=== PATIENT | female | born 1985 | race Caucasian/White ===

== ENCOUNTER 2017-08-31 21:26 | Inpatient (IN) ==
[~2017-08-31 21:26] MED LIST: ESTROGENS CONJUGATED 25 MG IVP ONE
--- OUTSIDE RECORDS SUMMARY | 2017-08-31 21:34 | External Medical Summary | Continuity of Care Document ---
:1985 Author Organization Keiry Craven [facility] Care Team Providers Name Role Phone JOE CORRAL D.O. Unavailable Unavailable Insurance Providers Payer Name Policy Number Subscriber Name Relationship [employer] [place] [id number] Haylie Sexton 01 Self / Same As Patient Advance Directives Directive Response Recorded Date/Time Patient Resuscitation Status Full Code 04/23/15 9:06am Advance Directives No 04/23/15 9:06am Living Will No 04/23/15 9:06am Power of Maintenance Machine Repairer/Legal Guardian No 04/22/15 12:54pm Problems No problem information available. Medications Current Home Medications Medication Dose Units Route Directions Days/Qty Instructions Start Date Phentermine Hcl 37.5 Mg Oral Daily for Not 04/22/15 37.5 Mg Specified Social History Social History Problem Response Recorded Date/Time Smoking Status Never smoker 04/23/2015 9:06am Query Response Start Date Stop Date Smoking Status Never smoker Hospital Discharge Instructions No hospital discharge instructions. Plan of Care Discharge Date 04/23/15 12:50pm Prescriptions See Medication Section Functional Status Query Response Date Recorded Overall Activities Daily Living Independ/No setup help April 23, 2015 9: 06am Ability/Staff Support Allergies, Adverse Reactions, Alerts No known allergies. Immunizations No immunization records. Vital Signs Acute Vital Signs Vital Response Date/Time Blood Pressure 138/85 mm Hg 04/23/2015 9:06am Blood Pressure Mean 89 mm Hg 04/23/2015 12:05pm Blood Pressure Mean 102 mm Hg 04/23/2015 9:06am Temperature (Fahrenheit) 98.1 degrees F (96.0 - 99.9) 04/23/2015 9:06am Temperature (Calculated Celsius) 36.90534 degrees C 04/23/2015 9:06am Temperature Source Oral 04/23/2015 9:06am Temp 97.1 degrees F (96.0 - 99.9) 04/23/2015 12:11pm Temperature (Calculated Celsius) 36.66507 degrees C 04/23/2015 12:11pm Pulse Pulse Rate (adult) 80 bpm (60 - 100) 04/23/2015 9:06am Pulse Rate (adult) 63 bpm (60 - 100) 04/23/2015 12:10pm Respiratory Rate 18 breaths per minute (10 - 20) 04/23/2015 9:06am Respiratory Rate 15 bpm (10 - 20) 04/23/2015 12:10pm Height (Feet) 5 ft 04/23/2015 9:06am Height (Inches) 8.0 in. 04/23/2015 9:06am Weight (Pounds) 206.0 lbs 04/23/2015 9:06am Height 5 ft 8 in Weight 206 lb Body Mass Index 31.3 kg/m^2 Results Laboratory Results Test Name Result Units Flags Reference Collection Result Comments Date/Time Date/Time Bedside Glucose 86 mg/dL 70-120 04/23/2015 04/23/2015 00 9:37am 9:43am Urine Human NEGATIVE NEGATIVE 04/23/2015 UNK 04/23/2015 Chorionic 10:07am Gonadotropin Procedures Procedure Status Date Provider(s) Knee arthroscopy, left Completed 04/23/15 MARI HAMILTON M.D. Encounters Encounter Location Arrival/Admit Date Discharge/Depart Date Attending Provider Departed Keiry Craven 04/23/15 9:06am 04/23/15 12:50pm MARI HAMILTON M.D. Surgical Day [facility]. Hospital Care
--- OUTSIDE RECORDS SUMMARY | 2017-08-31 21:34 | External Medical Summary | Referral Summary ---
:1985 Author Organization [facility] Address [address] [place] [id number] Care Team Providers Name Role Phone Crystal Barbosa Primary Care Physician Encounter VC Date(s): 01/28/15 - 01/28/15 [facility] [address] [place] [phone] [place] Discharge Diagnosis: Dietary counseling Discharge Disposition: 01-Home or Self Care Attending Physician: Crystal Barbosa MD Admitting Physician: Crystal Barbosa MD Vital Signs Most recent to oldest [Reference Range]: 1 Peripheral Pulse Rate [60-100 bpm] 80 bpm (01/28/15 1:05 PM) Respiratory Rate [14-20 br/min] 20 br/min (01/28/15 1:05 PM) Blood Pressure [90-140/60-90 mmHg] 120/76 mmHg (01/28/15 1:05 PM) Problem List Condition Effective Dates Status Health Status Informant Morbid obesity(Confirmed) Active patient Allergies, Adverse Reactions, Alerts No Known Allergies Medications [place] 5 mg-325 mg oral tablet 1 tabs, Oral, q6hr, 0 Refill(s) Start Date: 01/28/15 Status: Orderedphentermine 37.5 mg oral tablet 37.5 mg 1 tabs, Oral, Daily, # 30 tabs, 0 Refill(s) Start Date: 03/12/15 Status: Orderedphentermine 37.5 mg oral tablet 37.5 mg 1 tabs, Oral, Daily, # 30 tabs, 0 Refill(s) Start Date: 01/28/15 Status: Orderedspironolactone 25 mg oral tablet 25 mg 1 tabs, Oral, Daily, 0 Refill(s) Start Date: 01/28/15 Status: Ordered Results No data available for this section Immunizations No data available for this section Procedures Procedure Date Related Diagnosis Body Site Tubal ligation evaluation [place] teeth extracted Social History Social History Type Response Smoking Status Never smoker Assessment and Plan Extracted from: Title: *Dietary counseling Author: Crystal Barbosa MD Date: 01/28/15 Assessment/Plan Dietary counseling Phentermine #1was prescribed. Instructions for use and possible side-effects were discussed. Patient is to monitor blood pressure and recheck weight and blood pressure here in 1 month. Patient instructed to call if problems develop. Discussed dietary and exercise strategies for weight loss with emphasis on a long-term, balanced approach to eating and living.
--- OUTSIDE RECORDS SUMMARY | 2017-08-31 21:34 | External Medical Summary | Continuity of Care Document ---
:1985 Author Organization [facility] Address [address] [place], [place] [phone] Phone Care Team Providers Name Role Phone Albert Ko DO Unavailable Unavailable Allergies, Adverse Reactions, Alerts Substance Reaction Severity Status No Known Drug Allergies Unknown Active Medications Medication Instructions Dosage Effective Dates Status Comments (start - stop) Aygestin 5 mg tablet take 1 Tablet by - Active Oral route two times daily for 14 days Mirena 20 mcg/24 hr - - Active (5 years) intrauterine device doxycycline take 1 capsule by 100 MG - No Longer monohydrate 100 mg oral route 2 times Active capsule every day for 7 days Problems Condition Effective Dates (start - stop) Clinical Status Encntr for f/u exam aft trtmt for cond - oth yris ballard neoplvero Encounter for insertion of - intrauterine contraceptive device Encounter for test, result - negative Menorrhagia Dysfunctional Uterine Bleeding Pap Smear Screening, Cervix - Dysfunctional Uterine Bleeding - Procedures Procedure Date Postop followup visit Results Test Name Date and Time Measure Units Reference Range Abnormal Flag Comments Unknown Advance Directives Directive Yes / No Effective Date File Name Unknown Encounters Encounter Practice Location Reason(s) Diagnoses Date Provider Care Description For Visit Team Members Vida Reyes [facility] [address] [place]. [facility] [place], [id number] [address] Veronica, [place], 120, [id number], [place], [place], tel:[phone] , [place]. tel: [phone] Vida Reyes post-operati Encntr for f/u Dec-2 [facility] ve exam aft trtmt - [place]. [address] [place] [address], examination for cond oth than 7 Medical PO Box (chief malig neoplm Center 1522, complaint) [place], 120, [place], [place], [id number], [place], [place] [id number] tel: , [place]. tel:[phone] Vida Reyes Encounter for Dec-0 [facility] insertion of [place]. [address] [place] [address], intrauterine 7 Medical PO Box contraceptive Center 1522, deviceEncounter , [place] Martin, for 120, [place], test, result [place], , negative [place], [place] tel:+ , [place]. tel: [phone] Vida Re[place] Dysfunctional Dec-0 [facility]omens Ultrasound Uterine Bleeding [place]. [address] [place] [address] JEANNIE, 7 Medical PO Box Center 1522, [place], 120, [place], [place], , [place], [place] [id number] tel: , [place]. tel: [phone] Vida Reyes MenorrhagiaDysfun Nov-1 [facility] In Womens ctional Uterine [place]. [address] [place] [address] JEANNIE, BleedingPap Smear 7 Medical PO Box Screening, Cervix Center 1522, [place], 120, [place], [place], , [place], [place] [id number] tel: , [place]. tel: [phone] Vida Reyes Oct-0 [facility]omens 9-200 [place]. 700 [facility] JEANNIE, 8 Medical PO Box Center 1522, [place], 120, [place], [place], , [place] [id number] tel: , [place]. tel:[phone] Family History Family Member Diagnosis Age At Onset Family history of Thyroid Cancer Maternal Grandmother Cancer, breast Grandmother Cancer, colon Immunizations Vaccine Date Status Comments Unknown Payers Payer name Insurance type Covered democrat ID Authorization(s) [facility] - [id number] Medicaid Social History Type Description Quantity Date Captured Alcohol Use Details Unknown Caffeine Use Details Unknown Tobacco Use Status Unknown Smoking Status Never smoker Vital Signs Date / Height Weight BMI Pulse Blood Temperature Respiratory Body Head BMI Time: Rate Pressure Rate Surface Circumference percentile Area 67.00 318.30 49.8 98 134/81 -2017 in lbs 5 /min mm[Hg] 3:22 kg/m PM eter (2) Chief Complaint And Reason For Visit Unknown Chief Complaint And Reason For Visit Reason For Referral Reason For Referral Unknown Plan Of Care Date Type Action Status Future Order: Radiology Order Pelvic Ultrasound ([id number]) Ordered Date Type Problem Goal Intervention Status Start Date Unknown. History Of Present Illness Encounter Date Complaint History Of Present Illness post-operative examination Functional Status Encounter Date Functional Assessment Cognitive Assessment Unknown Medications Administered Medication Instructions Dosage Effective Dates (start - stop) Status Comments Drug Treatment Unknown Instructions Date Instruction Additional Information Unknown
--- OUTSIDE RECORDS SUMMARY | 2017-08-31 21:34 | External Medical Summary | Continuity of Care Document ---
:1985 Author Organization [facility] [facility] [place] Address [address] [place], [place] [phone] Phone Care Team Providers Name Role Phone Maikel Lb HAMILTONothy Unavailable Unavailable Allergies, Adverse Reactions, Alerts Substance Reaction Severity Status No Known Drug Allergies Unknown Active Medications Medication Instructions Dosage Effective Dates Status Comments (start - stop) Aygestin 5 mg take 1 tablet by Not Available - Active tablet oral route every 4 hours until bleeding stops then 3 times a day until gone Problems Condition Effective Dates (start - stop) Clinical Status Encntr for f/u exam aft trtmt for cond - oth yris borjas 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 Menorrhagia Menorrhagia Dysfunctional Uterine Bleeding Pap Smear Screening, Cervix - Dysfunctional Uterine Bleeding - Encounter for insertion of - intrauterine contraceptive device Encounter for test, result - negative Chronic Anemia Active Procedures Procedure Date Unknown Results Test Name Date and Time Measure Units Reference Range Abnormal Flag Comments Unknown Advance Directives Directive Yes / No Effective Date File Name Unknown Encounters Encounter Practice Location Reason(s) Diagnoses Date Provider Care Description For Visit Team Members [facility] Iron deficiency Jimy-2 [facility]omens anemia secondary to [address] [place] [address] [employer] [place], blood loss 8 Medical PO Box (chronic)Enlarged Center 1522, UterusMenorrhagia , D[place] Martin, [facility], [place], [place], [id number], [place], [place] [id number] tel: , [place]. [id number] tel: [phone] Vida Reyes Jimy-0 [facility]omens [address] [place] [address] [employer] [place], 8 Medical PO Box Center 1522, [place], 120, [place], [place], , [place], [place] tel: , . tel: [phone] [facility] Encntr for f/u exam Dec-2 [facility] In [facility]omens aft trtmt for cond 6-[address] [place]. 700 [employer] [place], oth than malig 7 Medical PO Box neoplm Center 1522, [place], 120, [place], [place], , [place], [place] tel:+ , . tel: [phone] [facility] Encounter for Dec-0 [facility] In Womens insertion of 7-[address] [place]. 700 [employer] [place], intrauterine 7 Medical PO Box contraceptive Center 1522, deviceEncounter for [place], test, 120, [place], result negative [place], , [place], [place] tel: , . tel: [phone] Vida Re[place] Dysfunctional Dec-0 [facility] In Womens Ultrasound Uterine Bleeding 7-[address] [place]. 700 [employer] [place], 7 Medical PO Box Center 1522, [place], 120, [place], [place], , [place], [place] tel:+ , . tel: [phone] Vida Re[place] MenorrhagiaDysfunct Nov-1 [facility] In Womens ional Uterine 6-201 [place]. 700 [facility], BleedingPap Smear 7 Medical PO Box Screening, Cervix Center 1522, [place], 120, [place], [place], , [place], [place] [id number] tel: , . tel: [phone] Vida Re[place] Oct-0 [facility] In Womens 9-200 [place]. 700 [employer] [place], 8 Medical PO Box Center 1522, [place], 120, [place], [place], , [place], [place] tel: , . tel: [phone] Family History Family Member Diagnosis Age At Onset Family history of Thyroid Cancer Maternal Grandmother Cancer, breast Grandmother Cancer, colon Immunizations Vaccine Date Status Comments Unknown Payers Payer name Insurance type Covered republican ID Authorization(s) [facility] - [id number] Medicaid Social History Type Description Quantity Date Captured Unknown Vital Signs Date / Height Weight BMI Pulse Blood Temperature Respiratory Body Head BMI Time: Rate Pressure Rate Surface Circumference percentile Area Unknown Chief Complaint And Reason For Visit Unknown Chief Complaint And Reason For Visit Reason For Referral Reason For Referral Unknown Plan Of Care Date Type Action Status Appointment Haylie Carrero BOOKED Appointment Haylie Carrero - [facility] BOOKED Future Order: Radiology Order Pelvic Ultrasound ([id number]) Ordered Date Type Problem Goal Intervention Status Start Date Unknown. History Of Present Illness Encounter Date Complaint History Of Present Illness This patient has no known history of present illness Functional Status Encounter Date Functional Assessment Cognitive Assessment Unknown Medications Administered Medication Instructions Dosage Effective Dates (start - stop) Status Comments Drug Treatment Unknown Instructions Date Instruction Additional Information Unknown
--- OUTSIDE RECORDS SUMMARY | 2017-08-31 21:34 | External Medical Summary | Continuity of Care Document ---
:1985 Author Organization [facility] [place] Address [address] [place], [place] [phone] Phone Care Team Providers Name Role Phone Albert Ko DO Unavailable Unavailable Allergies, Adverse Reactions, Alerts Substance Reaction Severity Status No Known Drug Allergies Unknown Active Medications Medication Instructions Dosage Effective Dates Status Comments (start - stop) doxycycline take 1 capsule by oral 100 MG - Active monohydrate 100 mg route 2 times every capsule day for 7 days Mirena 20 mcg/24 hr ( - - Active years) intrauterine device Problems Condition Effective Dates (start - stop) Clinical Status Encntr for f/u exam aft trtmt for cond - ot yris ballard neoplm Dysfunctional Uterine Bleeding - Encounter for insertion of - intrauterine contraceptive device Encounter for test, result - negative Menorrhagia Dysfunctional Uterine Bleeding Pap Smear Screening, Cervix - Procedures Procedure Date Ultrasound exam of pelvis, complete Results Test Name Date and Time Measure Units Reference Range Abnormal Flag Comments Unknown Advance Directives Directive Yes / No Effective Date File Name Unknown Encounters Encounter Practice Location Reason(s) Diagnoses Date Provider Care Description For Visit Team Members Vida Re[place] Encntr for f/u exam Jul- [facility] In [facility] aft trtmt for cond [address], ot than nellie 7 Medical PO Box neoplm Center 1522, [place], [facility], [place], [place], [id number], [place], [place] [id number] tel:+ , [place]. [id number] tel: [phone] Vida Reyes Encounter for Dec-0 Ky[facility] In Womens insertion of 7-[address] [place]. [facility] [employer], intrauterine 7 Medical PO Box contraceptive Center 1522, deviceEncounter for , [place] Martin, test, 120, [place], result negative [place], , [place], [place] [id number] tel: , [place]. tel: [phone] [facility] Dysfunctional Dec-0 [facility] In Womens Ultrasound Uterine Bleeding [address] [place] [address] [employer], 7 Medical PO Box Center 1522, [place], 120, [place], [place], [id number], [place], [place] [id number] tel: , [place]. tel: [phone] [facility] MenorrhagiaDysfunct Nov-1 Ky[facility] In Womens ional Uterine 6-[address] [place]. [facility] [employer], BleedingPap Smear 7 Medical PO Box Screening, Cervix Center 1522, [place], 120, [place], [place], , [place], [place] [id number] tel: , [place]. tel: [phone] Vida Re[place] Oct-0 [facility] In Womens 9-[address] [place]. [facility] [employer], 8 Medical PO Box Center 1522, [place], 120, [place], [place], , [place], [place] [id number] tel: , [place]. tel: [phone] Family History Family Member Diagnosis Age At Onset Family history of Thyroid Cancer Maternal Grandmother Cancer, breast Grandmother Cancer, colon Immunizations Vaccine Date Status Comments Unknown Payers Payer name Insurance type Covered republican ID Authorization(s) [facility] - [id number] Medicaid Social History Type Description Quantity Date [...] Status Future Order: Radiology Order Pelvic Ultrasound ([id number]) Ordered Date Type Problem Goal Intervention Status [...]
--- OUTSIDE RECORDS SUMMARY | 2017-08-31 21:34 | External Medical Summary | Continuity of Care Document ---
:1985 Author Organization [facility] [employer] [facility] [place] Address [address] [place] [phone] Phone Care Team Providers Name Role Phone Albert Ko DO Unavailable Unavailable Allergies, Adverse Reactions, Alerts Substance Reaction Severity Status No Known Drug Allergies Unknown Active Medications Medication Instructions Dosage Effective Dates (start - stop) Status Comments No Drug Therapy Prescribed Problems Condition Effective Dates (start - stop) Clinical Status Menorrhagia Dysfunctional Uterine Bleeding Pap Smear Screening, Cervix - Procedures Procedure Date Unknown Results Test Name Date and Time Measure Units Reference Range Abnormal Flag Comments Unknown Advance Directives Directive Yes / No Effective Date File Name Unknown Encounters Encounter Practice Location Reason(s) Diagnoses Date Provider Care Description For Visit Team Members Vida Reyes MenorrhagiaDysfunctio Jun- [facility] In Womens nal Uterine [address] [place] [address] [employer] [place], BleedingPap Smear 7 Medical PO Box Screening, Cervix Center [facility], [place], 120, [place], [place], [id number], [place], [place] [id number] tel: , [employer]. tel: [phone] Vida Reyes Jun- Kyaw In Womens [address] [place] [address] [employer] [place], 7 Medical PO Box Center 1522, [place], 120, [place], [place], [id number], [place], [place] [id number] tel: , [place]. [id number] tel: [phone] Vida Reyes May-0 Ky[facility] In Womens [address] [place] [address] [employer] [place], 8 Medical PO Box Center 1522, [place], 120, [place], [place], , [place], [place] [id number] tel: , [employer] [address] tel: [phone] Family History Family Member Diagnosis Age At Onset Family history of Thyroid Cancer Maternal Grandmother Cancer, breast Grandmother Cancer, colon Immunizations Vaccine Date Status Comments Unknown Payers Payer name Insurance type Covered republican ID Authorization(s) [facility] - [id number] Medicaid Social History Type Description Quantity Date [...] Appointment Haylie Carrero BOOKED Appointment Haylie Carrero BOOKED Date Type Problem Goal Intervention Status Start Date Unknown. History Of Present Illness Encounter Date Complaint History Of Present Illness This patient has no known history of present illness Functional Status Encounter Date Functional Assessment Cognitive Assessment Unknown Medications Administered Medication Instructions Dosage Effective Dates (start - stop) Status Comments No Drug Therapy Prescribed Instructions Date Instruction Additional Information Unknown
--- OUTSIDE RECORDS SUMMARY | 2017-08-31 21:34 | External Medical Summary | Continuity of Care Document ---
:1985 Author Organization [facility] [employer] [place] Address [address] [place], [place] [phone] Phone Care Team Providers Name Role Phone [...] aft trtmt for cond - oth yris balderas Encounter for insertion of - intrauterine contraceptive [...] Description For Visit Team Members Vida Reyes post-operati Encntr for f/u [facility] In [facility] exam aft trtmt [address], examination for cond oth than 7 Medical PO Box (chief malig neoplm Center 1522, complaint) Dami Reaves, [facility], [place], [place], [id number], [place], [place] [id number] tel: , [place]. [id number] tel: [phone] Vida Reyes Encounter for Dec-0 Kyaw In Womens insertion of 7-[address] [place]. 700 [employer] [place], intrauterine 7 Medical PO Box contraceptive Center 1522, deviceEncounter , [place] Martin, for 120, [place], test, result [place], [id number], negative [place], [place] [id number] tel:+ , [place]. tel: [phone] [facility] [place] Dysfunctional Dec-0 Kyaw In Womens Ultrasound Uterine Bleeding 7-[address] [place]. 700 [employer] [place], 7 Medical PO Box Center 1522, , [place], 120, [place], [place], [id number], [place], [place] [id number] tel:+ , [place]. tel: [phone] [facility] MenorrhagiaDysfun Nov- Kyaw In Womens ctional Uterine 6-201 [place]. 700 [employer] [place], BleedingPap Smear 7 Medical PO Box Screening, Cervix Center 1522, , [place] Martin, 120, [place], [place], [id number], [place], [place] [id number] tel:+ , [place]. tel: [phone] [facility] Oct-0 Kyaw In Womens 9-200 [place]. 700 [employer] [place], 8 Medical PO Box Center 1522, , [place], 120, [place], [place], , [place], [place] [id number] tel:+ , [place]. tel: [phone] Family History Family Member Diagnosis Age At Onset Family history of Thyroid Cancer Maternal Grandmother Cancer, breast Grandmother Cancer, colon Immunizations Vaccine Date Status Comments Unknown Payers Payer name Insurance type Covered democrat ID Authorization(s) [facility] - [id number] Medicaid Social History Type Description Quantity Date [...] (2) Chief Complaint And Reason For Visit Most recent encounter only, dated '07/26/2017 15:15'. post-operative examination (chief complaint) Reason For Referral Reason For Referral Unknown Plan Of Care Date Type Action Status Future Order: Radiology Order Pelvic Ultrasound ([id number]) Ordered Date Type Problem Goal Intervention Status Start Date Unknown. History Of Present Illness Encounter Date Complaint History Of Present Illness post-operative examination Functional Status Encounter Date Functional Assessment Cognitive Assessment Unknown Medications Administered Medication Instructions Dosage Effective Dates (start - stop) Status Comments Drug Treatment Unknown Instructions Date Instruction Additional Information Unknown
--- OUTSIDE RECORDS SUMMARY | 2017-08-31 21:34 | External Medical Summary | Referral Summary ---
:1985 Author Organization [facility] Address [address] [place] [phone] Care Team Providers Name Role Phone Crystal Barbosa Primary Care Physician Encounter [facility] [id number] Date(s): 03/12/15 - 03/12/15 [facility] [address] [place] [address] [place] Discharge Diagnosis: Morbid obesity Discharge Disposition: 01-Home or Self Care Attending Physician: Mari Carbajal APRN Admitting Physician: aMri Carbajal APRN Vital Signs Most recent to oldest [Reference Range]: 1 Peripheral Pulse Rate [60-100 bpm] 100 bpm (03/12/15 3:48 PM) Blood Pressure [90-140/60-90 mmHg] 112/76 mmHg (03/12/15 3:48 PM) SpO2 98 % (03/12/15 3:48 PM) Problem List Condition Effective Dates Status Health Status Informant Morbid obesity(Confirmed) Active patient Allergies, Adverse Reactions, Alerts No Known Allergies Medications [place] 5 mg-325 mg oral tablet 1 tabs, [...] Related Diagnosis Body Site Tubal ligation evaluation [place] teeth extracted Social History Social History Type Response Smoking Status Never smoker Assessment and Plan Extracted from: Title: Wt Loss Author: Mari Carbajal APRN Date: 03/12/15 Assessment/Plan Morbid obesity Discussed trying to get a little exercise and continuing to monitor what she was eating. Refilled phentermine #2. Orders: phentermine, 37.5 mg 1 tabs, Oral, Daily, # 30 tabs, 0 Refill(s)
--- OUTSIDE RECORDS SUMMARY | 2017-08-31 21:34 | External Medical Summary | Continuity of Care Document ---
:1985 Author Organization [facility] Address [address] [place] [phone] Phone Care Team Providers Name Role Phone Albert Ko DO Unavailable Unavailable Allergies, Adverse Reactions, Alerts Substance Reaction Severity Status No Known Drug Allergies Unknown Active Medications Medication Instructions Dosage Effective Dates (start - stop) Status Comments No Drug Therapy Prescribed Problems Condition Effective Dates (start - stop) Clinical Status Menorrhagia Dysfunctional Uterine Bleeding Pap Smear Screening, Cervix - Procedures Procedure Date Office[facility]outpatient visit[facility] Pap Smear handling/transport Results Test Name Date and Time Measure Units Reference Range Abnormal Flag Comments Panel Description: Pap Smear With HPV Reflex If ASCUS Document Pap Smear 14:00:00 See scanned report Advance Directives Directive Yes / No Effective Date File Name Unknown Encounters Encounter Practice Location Reason(s) Diagnoses Date Provider Care Description For Visit Team Members Office/outpa [facility] MenorrhagiaDysfunctio Kyaw briscoe In Womens nal Uterine 6-201 [facility] 700 visit,[facility] [facility] [place], BleedingPap Smear 7 Medical mod PO Box Screening, Cervix Center [address] [place], [address], [place], [place], [id number], [place], [place] [id number] tel: , [place]. [id number] tel: [phone] Associates [facility] May- Kyaw In Womens 9-200 [place]. 700 Health [place], 8 Medical PO [address] [place], [address], [place], [place], [id number], [place], [place] [id number] tel: , [place]. [id number] tel: [phone] Family History Family Member Diagnosis Age At Onset Family history of Thyroid Cancer Maternal Grandmother Cancer, breast Grandmother Cancer, colon Immunizations Vaccine Date Status Comments Unknown Payers Payer name Insurance type Covered libertarian ID Authorization(s) [facility] - [id number] Medicaid Social History Type Description Quantity Date Captured Alcohol Use Details Caffeine Use Details Unknown Tobacco Use Status Never smoked tobacco Smoking Status Never smoker Non-Smoking Tobacco Use : No Details Available : No Details Available Details Vital Signs Date / Height Weight BMI Pulse Blood Temperature Respiratory Body Head BMI Time: Rate Pressure Rate Surface Circumference percentile Area 313.80 98 142/86 2017 lbs /min mm[Hg] 2:04 PM Chief Complaint And Reason For Visit Unknown [...]
--- OUTSIDE RECORDS SUMMARY | 2017-08-31 21:34 | External Medical Summary | Continuity of Care Document ---
:1985 Author Organization [facility] Address [address] [place], [place] [phone] Phone Care Team Providers Name Role Phone [...] then 3 times a day until gone Aygestin 5 mg take 1 Tablet by - No Longer tablet Oral route two Active times daily for 14 days Problems Condition Effective Dates (start - [...] Description For Visit Team Members Vida Reyes Iron deficiency Kyaw In [facility] anemia secondary to 5-[address] [place] [address] [place], blood loss 8 Medical PO Box (chronic)Enlarged Center 1522, UterusMenorrhagia Dami Reaves, [facility] [place], [place], [place], [id number], [place], [place] [id number] tel: , [place]. [address] tel: [phone] Vida Reyes Jimy-1 [place] In Womens 0-201 [place] [place], 8 700 PO Box Medical [address], [address] Veronica, [facility], 120, [id number], Reyes, [facility], tel: , [place]. tel: [phone] [facility] Encntr for f/u exam Dec-2 Kyaw In Womens aft trtmt for cond 6-201 [place]. 700 [facility], oth [facility] malig 7 Medical PO Box neoplm Center 1522, , Dmai Martin, 120, [place], [place], [id number], [place], [place] [id number] tel: , [place]. tel: [phone] [facility] Encounter for Dec-0 Kyaw In Womens insertion of 7-201 [place]. 700 [employer] [place], intrauterine 7 Medical PO Box contraceptive Center 1522, deviceEncounter for , Dami Martin, test, [facility] [place], [place], result negative [place], [id number], [place], [place] [id number] tel:+ , [place]. tel: [phone] Vida Reyes Dysfunctional Dec-0 Kyaw In Womens Ultrasound Uterine Bleeding 7-201 [place]. 700 [employer] [place], 7 Medical PO Box Center 1522, , Dami Martin, 120, [place], [place], [id number], [place], [place] [id number] tel:+ , [place]. tel: [phone] Vida Reyes MenorrhagiaDysfunct Nov-1 Kyaw In Womens ional Uterine 6-201 [place]. 700 [employer] [place], BleedingPap Smear 7 Medical PO Box Screening, Cervix Center 1522, Dami Reaves, 120, [place], [place], [id number], [place], [place] [id number] tel: , [place]. tel: [phone] Vida Reyes Oct-0 Kyaw In Womens 9-200 [place]. 700 [employer] [place], 8 Medical PO Box Center 1522, Dami Reaves, 120, [place], [place], , [place], [place] [id number] tel:+ , [place]. tel: [phone] Family History Family Member Diagnosis Age At Onset Family history of Thyroid Cancer Maternal Grandmother Cancer, breast Grandmother Cancer, colon Immunizations Vaccine Date Status Comments Unknown Payers Payer name Insurance type Covered green party ID Authorization(s) [facility] - [id number] Medicaid Social History Type Description Quantity Date [...] Haylie Carrero BOOKED Appointment Haylie Carrero - [facility] [place] Future Order: Radiology Order Pelvic Ultrasound ([id number]) Ordered Date Type Problem Goal Intervention Status [...]
--- OUTSIDE RECORDS SUMMARY | 2017-08-31 21:34 | External Medical Summary | Continuity of Care Document ---
:1985 Author Organization [facility] Address [address] [place], [place] [phone] Phone Care Team Providers Name Role Phone Albert Ko DO Unavailable Unavailable Allergies, Adverse Reactions, Alerts Substance Reaction Severity Status No Known Drug Allergies Unknown Active Medications Medication Instructions Dosage Effective Dates (start Status Comments - stop) Mirena 20 mcg/24 hr (5 - - Active years) intrauterine device Problems Condition Effective Dates (start - stop) Clinical Status Encounter for insertion of - intrauterine contraceptive device Encounter for test, result - negative Menorrhagia Dysfunctional Uterine Bleeding Pap Smear Screening, Cervix - Dysfunctional Uterine Bleeding - Procedures Procedure Date Urine test Insert intrauterine device (IUD) Levonorgestrel IUD 52 Mg 5 Year Duration No Charge Office Visit Results Test Name Date and Time Measure Units Reference Range Abnormal Flag Comments Unknown Advance Directives Directive Yes / No Effective Date File Name Unknown Encounters Encounter Practice Location Reason(s) Diagnoses Date Provider Care Description For Visit Team Members Vida Reyes Report Encounter for Dec-0 Kyaw In Womens Review insertion of [place] [address] [employer] [place], (chief intrauterine 7 Medical PO Box complaint) contraceptive Center 1522, deviceEncounter for Dami Reaves, test, [facility], [place], result negative [place], [id number], [place], [place] [id number] tel: , [place]. [id number] tel: [phone] Vida Reyes Dysfunctional Dec-0 Kyaw In Womens Ultrasound Uterine Bleeding [place]. [place]eng [employer] [place], 7 Medical PO Box Center 1522, Dami Reaves, 120, [place], [place], [id number], [place], [place] [id number] tel: , [place]. tel: [phone] [facility] MenorrhagiaDysfunct Ykaw In Womens ional Uterine 6-201 [place] [address] [employer] [place], BleedingPap Smear 7 Medical PO Box Screening, Cervix Center 1522, Dami Reaves, 120, [place], [place], [id number], [place], [place] [id number] tel: , [place]. tel: [phone] Vida Reyes Oct-0 Kyaw In Womens 9-200 [facility] 700 [employer] [place], 8 Medical PO Box Center 1522, Dami Reaves, 120, [place], [place], [id number], [place], [place] [id number] tel: , [place]. tel: [phone] Family History Family Member Diagnosis Age At Onset Family history of Thyroid Cancer Maternal Grandmother Cancer, breast Grandmother Cancer, colon Immunizations Vaccine Date Status Comments Unknown Payers Payer name Insurance type Covered republican ID Authorization(s) [facility] - [id number] Medicaid Social History Type Description Quantity Date Captured Alcohol Use Details Caffeine Use Details Unknown Tobacco Use Status Never smoked tobacco Smoking Status Never smoker Non-Smoking Tobacco Use : No Details Available : No Details Available Details Vital Signs Date / Height Weight BMI Pulse Blood Temperature Respiratory Body Head BMI Time: Rate Pressure Rate Surface Circumference percentile Area 83 127/77 2017 /min mm[Hg] 2:51 PM Chief Complaint And Reason For Visit Most recent encounter only, dated '07/07/2017 14:45'. Report Review ( chief complaint) Reason For Referral Reason For Referral Unknown Plan Of Care Date Type Action Status Appointment Haylie Carrero BOOKED Future Order: Radiology Order Pelvic Ultrasound ([id number]) Ordered Date Type Problem Goal Intervention Status [...]
--- OUTSIDE RECORDS SUMMARY | 2017-08-31 21:34 | External Medical Summary | Continuity of Care Document ---
:1985 Author Organization [facility] [place] Address [address] [place], [place] [phone] Phone Care Team Providers Name Role Phone Albert Ko DO Unavailable Unavailable Allergies, Adverse Reactions, Alerts Substance Reaction Severity Status No Known Drug Allergies Unknown Active Medications Medication Instructions Dosage Effective Dates Status Comments (start - stop) doxycycline take 1 capsule by oral 100 MG - Active monohydrate 100 mg route 2 times every capsule day for 7 days Mirena 20 mcg/24 hr (5 - - Active years) intrauterine device Problems Condition Effective Dates (start - stop) Clinical Status Encntr for f/u exam aft trtmt for cond - jamshid yris borjas Encounter for insertion of - intrauterine contraceptive [...] Description For Visit Team Members [facility] Encntr for f/u exam Jul- Kyaw In [facility] aft trtmt for cond 6-[address], ot yris ballard 7 Medical PO Box neoplm [place] 1522, , Dami Martin, [facility], [place], [place], [id number], [place], [id number] tel: , [place]. tel: [phone] Vida Reyes Report Encounter for Dec-0 Kyaw In Womens Review insertion of 7-[address] [place]. 700 [employer] JEANNIE, (chief intrauterine 7 Medical PO Box complaint) contraceptive Center 1522, deviceEncounter for , Dami Martin, test, 120, [place], result negative [place], [id number], [place], [place] [id number] tel: , [place]. tel:[phone] Vida Reyes Dysfunctional Dec-0 Kyaw In Womens Ultrasound Uterine Bleeding 7-[address] [employer] [place]. 700 [employer] JEANNIE, 7 Medical PO Box Center 1522, Dami Reaves, 120, [place], [place], [id number], [place], [place] [id number] tel: , [place]. tel: [phone] Vida Reyes MenorrhagiaDysfunct Nov-1 Kyaw In Womens ional Uterine 6-[address] [employer] [place]. 700 [facility] JEANNIE, BleedingPap Smear 7 Medical PO Box Screening, Cervix Center 1522, Dami Reaves, 120, [place], [place], [id number], [place], [place] [id number] tel: , [place]. tel: [phone] Vida Reyes Oct-0 Kyaw In Womens 9-[address] [place]. 700 [place] JEANNIE, 8 Medical PO Box Center 1522, Dami Reaves, 120, [place], [place], [id number], [place], [place] [id number] tel: , [place]. tel: [phone] Family History Family Member Diagnosis Age At Onset Family history of Thyroid Cancer Maternal Grandmother Cancer, breast Grandmother Cancer, colon Immunizations Vaccine Date Status Comments Unknown Payers Payer name Insurance type Covered libertarian ID Authorization(s) [facility] - [id number] Medicaid Social History Type Description Quantity Date Captured Alcohol Use Details Caffeine Use Details Unknown Tobacco Use Status Never smoked tobacco Smoking Status Never smoker Non-Smoking Tobacco Use : No Details Available : No Details Available Details Vital Signs Date / Height Weight BMI Pulse Blood Temperature Respiratory Body Head BMI Time: Rate Pressure Rate Surface Circumference percentile Area 83 127/77 -2017 /min mm[Hg] 2:51 PM Chief Complaint And Reason For Visit Unknown Chief Complaint And Reason For Visit Reason For Referral Reason For Referral Unknown Plan Of Care Date Type Action Status Future Order: Radiology Order Pelvic Ultrasound ([id number]) Ordered Date Type Problem Goal Intervention Status [...]
--- OUTSIDE RECORDS SUMMARY | 2017-08-31 21:35 | External Medical Summary | Continuity of Care Document ---
:1985 Author Organization [facility] Allergies Active Description Code Type Severity Reaction Onset Reported/ Identified Relationship Clinical to Patient Status Yes No Known 46796 3 N/A N/A Drug 0 Allergies Yes No Known No Drug Unknown N/A 12/27/2014 Allergies Known Aller Aller gy gies Medications Medication Packaging Start Date Stop Date Route Dosage Sig Device 07/07/2017 MIRENA 8 DIRECTED Capsule 07/26/2017 DOXYCYCLINE 8 take 1 MONOHYDRATE capsule by oral route 2 times every day for 7 days Tablet 08/10/2017 AYGESTIN 8 take 1 Tablet by Oral route two times daily for 14 days Tablet 08/22/2017 AYGESTIN 8 take 1 tablet by oral route every 4 hours until bleeding stops then 3 times a day until gone Tablet 08/25/2017 AYGESTIN take 1 tablet by oral route every 4 hours until bleeding stops then 3 times a day until gone Problems Date Dx Attending Type Code Diagnosis Diagnosed By Coded 07/07/2017 Jarrett Card N93.8 Dysfunctional Uterine Bleeding Procedures Code [place] [address] Ultrasnd 07/07/2017 exam of pelvis,complete Results There is no data. Encounters ACCT No. Visit Discharge Status Pt. Type Provider Facility Loc./Unit Complaint Date/Time [id number] 12/27/2014 12/27/2014 [facility] 2535 19:30:00 21:15:00 , [facility] [id number] 08/26/2017 08/26/2017 [facility] Outpatient Kyaw, 08:24:00 23:59:59 Jarrett Sanches [id number] 08/25/2017 08/25/2017 [facility] Outpatient Kyaw, 11:10:00 23:59:59 Jarrett Sanches [id number] 08/25/2017 08/25/2017 [facility] Outpatient Kyaw, 10:07:00 23:59:59 Jarrett Sanches [id number] 08/22/2017 08/22/2017 [facility] Outpatient Kyaw, 08:14:00 23:59:59 Jarrett Sanches [id number] 08/10/2017 08/10/2017 [facility] Outpatient Fragoso, 10:16:00 23:59:59 Pinky Silva [id number] 08/09/2017 08/09/2017 [facility] Outpatient Kyaw, 16:02:00 23:59:59 Jarrett Sanches [id number] 07/26/2017 07/26/2017 [facility] Outpatient Kyaw, 15:15:00 23:59:59 Jarrett Sanches [id number] 07/07/2017 07/07/2017 [facility] Outpatient Kyaw, 14:45:00 23:59:59 Jarrett Sanches [id number] 07/07/2017 07/07/2017 [facility] Outpatient Kyaw, 14:15:00 23:59:59 Jarrett Sanches [id number] 06/16/2017 06/16/2017 [facility] Outpatient Kyaw, 14:00:00 23:59:59 Jarrett Sanches [id number] 06/15/2017 06/15/2017 [facility] Outpatient Kyaw, 10:42:00 23:59:59 Jarrett Sanches
[2017-08-31] MEDS: LR 1,000 ML IV SCH (21:52)
[2017-08-31 21:56] VITALS: BMI 47.6
[2017-08-31] MEDS ORDERED: ONDANSETRON 4 MG/2 ML INJECTION IVP PRN (22:03)
[2017-08-31] MEDS ORDERED: ESTROGENS CONJUGATED 25 MG IVP ONE (22:13)
[2017-08-31] MEDS ORDERED: NS FLUSH BAG 500ml IV PRN (22:26)
[2017-08-31] MEDS ORDERED: SALINE FLUSH 10ml SYRINGE IV PRN (22:26)
[2017-09-01] MEDS: IBUPROFEN 800 MG TABLET PO PRN (00:39)
[2017-09-01] MEDS: LR 1,000 ML IV SCH ×4 (00:59→17:05)
[2017-09-01] MEDS ORDERED: ESTROGENS CONJUGATED 25 MG IVP ONE ×3 (01:15→22:10)
--- NOTE | 2017-09-01 01:32 | OB/GYN Progress Note ---
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 will add some pain meds. Clinda ordered d/t fajardo. 1st unit in so will do lab soon, pt has not needed to void despite all the fluid so far so likely was dehydrated as a component 2nd IV Premarin is in. 211cc lost on pad counts so far. q&a-krb
[2017-09-01] MEDS: MORPHINE SULFATE 4mg INJECTION IVP PRN ×2 (01:50→15:36)
[2017-09-01] MEDS: CLINDAMYCIN PB 600 MG/50 ML BAG IV SCH ×3 (01:51→18:10)
--- NOTE | 2017-09-01 07:08 | History and Physical ---
HISTORY OF PRESENT ILLNESS This is a 32-year-old white female, G2, P2, with tubal ligation for contraception who called me this evening on-call and stated that she passed a big blood clot after showering and was feeling lightheaded and dizzy. She was seen in my office last week and a blood count put her hemoglobin 9.7. We started oral iron and she was on Aygestin to try to control her bleeding. She reports that her bleeding has been worse in the last week and much worse today. So I had her come to the hospital for a direct admission as she appeared to be symptomatic for anemia. Upon arrival we did a blood count and other lab work. Her CMP was essentially normal but her blood count was down to 7.6. She also reported being slightly short of breath when she went from the bathroom back to the bed. We did sequential compression stockings and started an IV LR bolus. I did a CBC, CMP and PT/INR. I crossed 2 units of blood. ALLERGIES No known allergies. MEDICATIONS Aygestin 5 mg every 4 hours for bleeding. OBSTETRICAL HISTORY Two previous vaginal deliveries. 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 PAST MEDICAL HISTORY Anemia - recently diagnosed. PAST SURGICAL HISTORY [place] teeth, left knee surgery, tubal ligation in 2011. SOCIAL HISTORY The patient is single, a nonsmoker with occasional alcohol use and no street drugs. ASSESSMENT Uterine bleeding in a non-gynecologic patient. Blood loss anemia PLAN Above orders were implemented. She has sequential compression stockings. Once I got her blood count back, I ordered IV Premarin 25 mg and I will repeat that in 3 hours and reassess bleeding then. Because she was symptomatic here when she was walking back to her bed from bathroom in that she felt lightheaded, dizzy and slightly short of breath, will go ahead and transfuse 1 unit. I will continue aggressive IV fluid hydration. Her platelets are normal at 325. She is scheduled for a hysterectomy in two weeks, but that schedule will likely be changed. After the blood is running, I am going take her to the ER exam room and attempt to put in a 30 ml Monterroso balloon for uterine tamponade but she recently had an IUD fall out and I don't know if the Monterroso balloon will stay in the uterus, but it is worth a try. I believe that the Premarin will likely control her bleeding. Other than obesity, she doesn't have any obvious increased risk factors for clotting. I talked to the patient and her mother about the fact that blood clots is my biggest concern with IV Premarin and high- dose estrogen but I was worried that the progesterone had thinned her uterine lining to where the bleeding wouldn't stop and we needed to change plans. Questions were answered to her mother and her satisfaction. Consent was obtained for the ER procedure and blood transfusion. ANGIE
[2017-09-01] MEDS ORDERED: BUPIVACAINE 0.25% (2.5mg/ml) PF 30ml INJECTION ONE (08:47)
[2017-09-01] MEDS ORDERED: LR 1,000 ML IV SCH (09:15)
[2017-09-01] MEDS ORDERED: CEFOXITIN 2 GM IVP ONE (09:37)
[2017-09-01] MEDS ORDERED: FentaNYL 250 MCG/5 ML INJECTION ONE (09:49)
[2017-09-01] MEDS ORDERED: KETAMINE 500 MG/10 ML INJECTION ONE (09:49)
[2017-09-01] MEDS ORDERED: SUCCINYLCHOLINE 20mg/mL 10mL INJECTION ONE (09:50)
[2017-09-01] MEDS ORDERED: DiphenhydrAMINE 50 MG/ML INJECTION ONE (09:50)
[2017-09-01] MEDS ORDERED: PROPOFOL 20 ML ONE (09:50)
[2017-09-01] MEDS ORDERED: ROCURONIUM 50 MG/5 ML INJECTION IVP ONE ×3 (09:50→13:07)
[2017-09-01] MEDS ORDERED: LIDOCAINE 2% (100mg/5mL) PF 5ml vl ONE (09:50)
[2017-09-01] MEDS ORDERED: DEXAMETHASONE 4 MG/ML INJECTION ONE (09:50)
[2017-09-01] MEDS ORDERED: ONDANSETRON 4 MG/2 ML INJECTION ONE ×2 (09:50→13:36)
[2017-09-01] MEDS ORDERED: DESFLURANE 240ml LIQUID IH ONE (09:55)
[2017-09-01] MEDS ORDERED: SALINE FLUSH 10ml SYRINGE ONE ×2 (10:04→10:39)
--- NOTE | 2017-09-01 11:28 | Anesthesia Preoperative Report ---
Anesthesia Preoperative Record - Date and Time Date: 09/01/17 Preoperative Diagnosis: vaginal hemorrhaging Proposed Procedure: urgent robot hyst NPO Since Date: 09/01/17 NPO Since Time: 00:00 Allergies/Adverse Reactions: Allergies Allergy/AdvReac Type Severity Reaction Status Date / Time No Known Drug Allergies Allergy Mild Verified 08/31/17 21:43 - Vital Signs Vital Signs: Temperature 98.4 F 09/01/17 09:12 Pulse Rate 85 09/01/17 09:12 Respiratory Rate 20 09/01/17 09:12 Blood Pressure 127/58 09/01/17 09:12 Pulse Oximetry 96 09/01/17 09:12 Height and Weight: Height 5 ft 8 in Weight 142.2 kg Body Mass Index 47.6 - Medications Inpatient Medications: Current Medications Lactated Ringer's (Lactated Ringers) 1,000 mls @ 150 mls/hr IV .Q6H40M [facility] Last Infusion: 09/01/17 02:25 Dose: 150 mls/hr Clindamycin Phosphate (Cleocin Premix) 600 mg in 50 mls @ 100 mls/hr IV Q8H [facility] Last Infusion: 09/01/17 02:25 Dose: Infused Lactated Ringer's (Lactated Ringers) 1,000 mls @ 50 mls/hr IV .Q20H [facility] Ibuprofen (Motrin) 800 mg PO Q8H PRN PRN Reason: Pain Last Admin: 09/01/17 00:39 Dose: 800 mg Morphine Sulfate (Morphine Sulfate Inj) 2 mg IVP Q2H PRN PRN Reason: Pain Last Admin: 09/01/17 01:50 Dose: 2 mg Ondansetron HCl (Zofran) 4 mg IVP Q6H PRN PRN Reason: Nausea &/or vomiting Sodium Chloride (Normal Saline) 500 ml IV PRN PRN Last Admin: 08/31/17 23:02 Dose: 500 ml Sodium Chloride (Iv Flush) 10 - 80 ml IV PRN PRN PRN Reason: Flushing Is Patient on Beta Kita?: No - Medical History Respiratory: Reports: Dyspnea (curerntly due to anemia), Sleep Apnea (no CPAP) Cardiovascular: Reports: Other (Anemia currently) Gastrointestional: Reports: Gastroesophageal Reflux Disease (poorly controlled) , Morbid Obesity Neuro/Musculoskeletal: Reports: Back Problems (lower back pain) Renal/Endocrine: DENIES: Diabetes Mellitus Type 1, Diabetes Mellitus Type 2, Renal Failure, Dialysis, Thyroid Disease, Weight Loss, Weight Gain, Other Other History: Reports: Blood Transfusions (currently) - Surgical History HEENT Surgeries: Reports: Other (wisdom teeth removal) Musculoskeletal Surgery/Tx: Reports: Other (miniskis repair) Anesthesia Reactions: None Hx Family Anesthesia Reaction: No History of Motion Sickness: No - Social History Smoking Status: Never smoker Substance Use Type: does not use - Pertinent Findings Laboratory: CBC and BMP 09/01/17 09:45 08/31/17 21:50 BMP 08/31/17 21:50 Sodium 142 Potassium 4.1 Chloride 105 Carbon Dioxide 27 BUN 11.0 Creatinine 1.1 Glucose 135 H Calcium 9.7 Liver Function 08/31/17 Range/Units 21:50 Total Bilirubin 0.40 (0.20-1.30) MG/DL AST 17 (14-36) U/L ALT 29 (9-52) U/L Alkaline Phosphatase 52 (38-126) U/L Albumin 4.3 (3.5-5.0) G/DL EKG: Sinus Rhythm - Physical Exam Respiratory Exam: Present: lungs clear, bilateral breath sounds equal Cardiovascular Exam: Present: regular rate and rhythm, no murmur - Airway Assessment Mallampati Score: III TMD: 2 Fingerbreadths Neck Extension: fair Teeth: chipped teeth/crowns Overall Assessment: may be difficult mask vent, may be difficult intubation - ASA ASA Score: 3, E - Plan Anesthesia: General Inhalation Gases - Discussion Discussion: Discussed risks/options/alternatives of anesthesia and questions answered. Patient consents. Nursing pain assessment noted. Present for Discussion: family member Attestation Statement: Prior to the delivery of any anesthetic medication, I examined the patient, developed the plan, obtained the patient's consent and discussed the risk and benefits of the procedure with the patient/guardian. - Additional Information Seen by Anesthesia: Yes
[2017-09-01] MEDS ORDERED: BUPIVACAINE 0.25% (2.5mg/ml) PF 30ml INJECTION ID ONE (11:48)
--- NOTE | 2017-09-01 11:55 | Progress Note ---
DATE 09/01/2017 I talked to the nurse this morning by phone when the hemoglobin came back and it was 7.2. This was about four hours after the last blood transfusion. So on review the patient was 9.7 last week in my office. She was 7.6 on admission and after 1 unit of blood only dafne to 7.9. I think part of it is that she was dehydrated and so we were aggressively hydrating her. At 5:30 this morning she was 7.2. We have been weighing and doing pad counts and the amount we have weighed is about 325 mL of blood. She does still have a 30-mL Monterroso catheter in but probably only about 10 mL of fluid in it right now to tamponade. She has not had heavy bleeding but clearly her blood counts are not elevating the way I would like them to. We gave the third dose of IV Premarin 25 mg. Her vital signs are stable. She is still occasionally symptomatic when she is up and going to the bathroom. I think the best course of action is to proceed with the hysterectomy which was originally planned for 15 days from now. Her bleeding has slowed from her report but has not stopped and we are giving her a second unit of blood currently. She has already had a tubal ligation so preservation of the uterus is not the goal. I am concerned that if we don't proceed with a hysterectomy then we will be forced to continue to transfuse. The patient agrees. Questions were answered to the patient's and her mother's satisfaction. OR was contacted earlier to see what our options were and we have confirmed a 9:30 start time. ANGIE
[2017-09-01] MEDS ORDERED: MORPHINE SULFATE 10 MG/ML VIAL ONE (13:28)
[2017-09-01] MEDS ORDERED: GLYCOPYRROLATE 0.4 MG/2 ML INJECTION ONE (13:30)
[2017-09-01] MEDS ORDERED: NEOSTIGMINE 10 MG/10 ML INJECTION ONE (13:30)
--- NOTE | 2017-09-01 13:51 | OB/GYN Procedure Note ---
Operative Note Date of Surgery: 09/01/17 Preoperative Diagnosis: 32 yo , menorrhagia, uterine hemorrhage Postoperative Diagnosis: same Procedure: Robotic Nikitast, BS Surgeon:Jarrett Card MD Telegraph Editor: Truong Willard DO EBL: 150 Anesthesia: GET Complications: none with surgery. See admit note.
[2017-09-01] MEDS ORDERED: METOCLOPRAMIDE 10mg/2ml INJECTION IVP PRN (14:04)
[2017-09-01] MEDS: FentaNYL 100 MCG/2 ML INJECTION IVP PRN ×4 (14:06→14:43)
--- NOTE | 2017-09-01 14:38 | Anesthesia Postoperative Note ---
- Date and Time Date: 09/08/17 Time: 14:37 - Status Patient Participated in Evaluation: Patient Participated in Person Vital Signs: Temperature 99.5 F 09/01/17 13:48 Pulse Rate 112 H 09/01/17 13:48 Respiratory Rate 14 09/01/17 13:48 Blood Pressure 114/58 09/01/17 13:48 Pulse Oximetry 93 09/01/17 13:48 Respiratory Function: Airway Patent, Regular Respirations Cardiovascular Function: Regular Pulse Mental Status: Alert and Oriented Pain Intensity: 4 Hydration: IV Infusing Complications During Recover: None Apparent - Follow-Up Instructions Instructions: Per Surgeon
[2017-09-01] MEDS ORDERED: ONDANSETRON 4 MG/2 ML INJECTION IVP PRN (15:27)
[2017-09-01] MEDS ORDERED: D5LR 1,000 ML IV SCH (15:27)
[2017-09-01] MEDS: HYDROCODONE/APAP 5mg/325mg TABLET PO PRN ×2 (16:17→23:02)
[2017-09-01] MEDS: SIMETHICONE 80 MG CHEWABLE TABLET PO SCH ×2 (18:09→21:35)
[2017-09-01] MEDS ORDERED: CEFOXITIN 2 GM in NS 100 ML IV ONE (18:18)
--- NOTE | 2017-09-01 18:28 | OB/GYN Progress Note ---
[employer] Postop Prog Note Free Text - Date Date: 09/01/17 - Progress Note vss af doing well hgb in RR improved extra antibiotic dose as had uterine tampanode q&a w/ pt.
[2017-09-01] MEDS: D5LR 1,000 ML IV SCH (23:45)
[2017-09-02] MEDS: HYDROCODONE/APAP 5mg/325mg TABLET PO PRN (06:15)
[2017-09-02] MEDS ORDERED: DOCUSATE CALCIUM 240 MG CAPSULE PO SCH (09:00)
[2017-09-02] MEDS: D5LR 1,000 ML IV SCH (09:32)
[2017-09-02] MEDS: SIMETHICONE 80 MG CHEWABLE TABLET PO SCH (09:35)
[2017-09-02] MEDS: IBUPROFEN 800 MG TABLET PO PRN (09:35)
[2017-09-02 13:31] VITALS: BP 117/69; PULSE 78; RESP 18; TEMP 97.9; O2SAT 97
--- NOTE | 2017-09-03 13:34 | Discharge Summary ---
DIAGNOSES Menorrhagia and uterine hemorrhage necessitating blood transfusion. BRIEF DESCRIPTION The patient was admitted on August 31 with symptomatic anemia, feeling lightheaded and faint from walking from the bathroom to her bedroom. Hemoglobin was down to 7.6. The week previous in my office it had been 9.7. She had previously had an IUD and it fell out. She had failed progesterone- only therapy for having menorrhagia. I admitted her and did Premarin 25 mg IV x 3 doses and a 30-mL Monterroso bulb uterine tamponade and she still was losing blood. She ultimately was transfused 3 units of packed red blood cells over the course of her hospital stay. The following morning I took her to an emergency robotic hysterectomy where a robotic hysterectomy and bilateral salpingectomy was performed. Postoperatively she did well and today is postop day #1 and she is dismissing to home. Hysterectomy instructions were reviewed. This morning's hemoglobin after a total of 3 units during her hospital stay is up to 9.0. Obviously she is still anemic so when she has a normal bowel movement then I am going to have her start on iron one p.o. daily for a month combined with a stool softener daily for a month. Prescriptions for pain pills were given. Will follow up in one week to remove stitches and review path report. Questions were answered to her and her mothers satisfaction. ANGIE
--- NOTE | 2017-09-05 09:26 | Operative Note ---
DATE OF SURGERY: 09/01/2017 PREOPERATIVE DIAGNOSIS: 32-year-old white female admitted for acute blood loss , known to have menorrhagia and enlarged uterus. POSTOPERATIVE DIAGNOSIS: same PROCEDURES: Robotic hysterectomy, bilateral salpingectomy. EBL: 150 mL SURGEON: Jarrett Card MD GEOLOGICAL SURVEY FIELD ASSISTANT: Truong Willard DO ANESTHESIA: General endotracheal DESCRIPTION OF PROCEDURE The patient was admitted last night with worsening bleeding. She had failed IUD therapy with an IUD falling out and she had failed oral progesterone therapy. At this point in time, she is receiving her third unit of blood transfused. She is scheduled for a hysterectomy on 09/15/2017 but it was moved up to this emergent fashion because of her heavy bleeding. She has previously had a tubal ligation. After adequate general anesthesia and intubation, the patient was positioned, prepped and draped in the usual robotic fashion. A heavy weighted speculum was placed posteriorly in the vaginal tract and then a Monterroso catheter was inserted to drain the bladder. A [place] retractor was used anteriorly to visualize the cervix which was grasped at the 12 o'clock position with a single-tooth tenaculum. The uterus sounded to 11 cm. It was anteverted. A single figure of eight suture was placed in the cervix for retraction purposes. Then an Arch uterine manipulator was inserted through the cervix and the balloon was inflated. The cup was then brought down over the cervix. Then the [place] and the posterior heavy weighted speculum were removed and the uterus was able to be palpated abdominally. I then changed gloves and approached the abdomen. An area was anesthetized with 0.25% Marcaine several centimeters superior to the umbilicus in the midline and then a #11 blade was used to make a 12 mm incision and then the abdomen was tented and a Veress needle was inserted. Saline drop test confirmed intraabdominal placement and then the abdomen was insufflated. Veress needle was then removed and then a 12 mm bladeless trocar was inserted. Once it was inside the abdomen, the sheath was left in place and the trocar was removed and the camera was inserted confirming intraabdominal placement and no obvious organ injury. Then the interior cuff on the 12 mm trocar was inflated. I then placed the 8 mm robotic trocars bilaterally approximately 10 cm lateral to the umbilicus. I anesthetized with Marcaine and made an incision with an 11-blade and then placed the ports under direct vision. This was repeated in the left upper quadrant for the assistant professor of marine biology port as well. Once all the ports were in place and advanced to the appropriate markings, then the bed was lowered and the patient was placed in 30 degrees Trendelenburg. We then backed it off to 22 degrees Trendelenburg and I still had an adequate view so the robot was brought forward and docked and I placed the bipolar fenestrated in the left arm and the monopolar scissors in the right arm. Then I removed my gown and approached the robotic console to begin the hysterectomy. The bladder was already drained. The uterus was elevated and I started by identifying the ureters bilaterally. Since the ovaries looked normal bilaterally, I decided to leave them in place which was the preoperative plan approved by the patient. Then I cauterized the round ligaments bilaterally and transected them and then opened up the broad ligament. Then I dissected the bladder off the lower uterine segment by creating a plane, then careful dissection. I filled the bladder with fluid to discern the edges and I dissected until the edge of the bladder was well below the manipulator cuff. Then I further dissected open the broad ligaments. I removed the tubes bilaterally with cautery and sharp dissection. Fallopian tubes were removed bilaterally by cauterizing their attachments and transecting them and dissecting them out. Since these tubes were in total of four pieces, the two distal aspects were removed through the 8 mm assistant professor of marine biology port. I then began skeletonizing the sides until I could identify the uterine vessels bilaterally. I could clearly see the posterior portion of the cuff cup and the anterior portion as I dissected off the bladder from the anterior portion of the uterus. I next cauterized the uterine vessels bilaterally, first by sealing them close to the uterus and then cauterizing down to the level of the cuff cup. Once the blood supply had been adequately cauterized, it was transected with monopolar scissors. I dissected both sides free until I was clear all the way around the cuff. Once it was clear all the way around, then I began dissecting through the vaginal cuff to the cup. I did this with monopolar scissors, starting anteriorly and first going to the right and then left until the uterus and tubes were completely free. They then were delivered vaginally and sent to pathology. After the uterus was excised and taken out, there appeared to be still a segment of the cervix attached to the vaginal cuff, so I had Dr. Willard come in and help with the retraction and I dissected out this area of thickening and sent it with the pathology specimen. We then copiously irrigated the pouch of Abdirashid and the vaginal cuff and a slight amount of cautery was used to gain some hemostasis on the vaginal cuff. Then the cuff closure was begun. Vaginal cuff was closed using 180-day 2-0 V- Loc suture starting from the right edge, incorporating the uterosacral ligament in a corner-type stitch across all the way to the left. Then another 180-day 2- 0 V-Loc suture was used starting from the left edge, incorporating the uterosacral ligament in a corner-type stitch across all the way to the right. This essentially made a double-layer closure in the middle of the vaginal cuff. I used large bites in the vaginal cuff because I was able to dissect the bladder down so well. Then additional irrigation was used to cleanse the area. Cuff was hemostatic and cleansed and the ureters were identified bilaterally and peristalsing again. I filled the bladder with fluid and no bladder injury or leakage was noted. This now being complete and the pelvis being reexamined bilaterally and found to be hemostatic, I was then ready to scrub back in and undock the robot. I reconfirmed hemostasis prior to removing the instruments. Then I removed each of the 8 mm ports under direct vision and they were hemostatic. Then I removed the 12 mm port and began closure. 2-0 Monocryl was used to close the skin on all four ports. Additional Marcaine was placed. Then I went vaginally and examined the vaginal cuff and it was hemostatic. Urine was clear and free flowing. I brought the patient out of Trendelenburg and flattened her. At this point the surgery was complete and the patient awoke and went to Recovery in stable condition. Uterus and tubes were sent to surgical pathology. ANGIE
== END 2017-09-02 14:14 | disposition home or self-care (01) | DRG 743 ==
LOC: SUR 21:26 → SRG 21:31
PROVIDERS: ADMIT Obstetrics & Gynecology; ATTEND Obstetrics & Gynecology